=== PATIENT | male | born 1940 | race Caucasian/White ===

== ENCOUNTER 2016-09-23 13:26 | Emergency (ER) | payer OTHER, MEDICARE ==
[2016-09-23 15:05] LABS: HEMOGLOBIN 15.8 gm/dl (14.0-17.5); RED BLOOD COUNT 4.99 M/UL (4.20-5.50); WHITE BLOOD COUNT 8.8 K/UL (4.5-11.0)
[2016-09-23 15:24] LABS: BUN/CREATININE RATIO 20 (0-10)
== END 2016-09-23 17:30 | disposition home or self-care (01) ==
LOC: ER1 13:26
PROVIDERS: Specialist/Technologist Athletic Trainer
DX: S20.212A Contusion of left front wall of thorax, initial encounter (principal); S50.312A Abrasion of left elbow, initial encounter; R79.89 Other specified abnormal findings of blood chemistry; I10 Essential (primary) hypertension; Z95.0 Presence of cardiac pacemaker; Z90.49 Acquired absence of other specified parts of digestive tract; V89.2XXA Person injured in unspecified motor-vehicle accident, traffic, initial encounter; Y93.89 Activity, other specified; Y92.410 Unspecified street and highway as the place of occurrence of the external cause
CPT/HCPCS: 36415; 70450; 71250; 73080; 80053; 82550; 82553; 83874; 83880; 84484; 85025; 85610; 85730; 93005; 99285